=== PATIENT | male | born 1985 | race Caucasian/White ===

== ENCOUNTER 2017-01-23 15:58 | Emergency (ER) | payer BC ==
--- NOTE | ~2017-01-23 | EKG ---
PATIENT: LELO SILVERIO UNIT #: [id number] Ventricular Rate: 100 BPM Atrial Rate: 100 BPM P-R Interval: 140 ms QRS Duration: 98 ms Q-T Interval: 348 ms QTC Calculation(Bezet): 448 ms P [place]: 35 degrees Calculated R [place]: 82 degrees Calculated T [place]: 11 degrees Diagnosis Line: Normal sinus rhythm Diagnosis Line: Normal ECG Diagnosis Line: Diagnosis Line: Confirmed by RIKI VENEGAS MD ([id number]) on 01/24/2017 Diagnosis Line: 5:24:57 PM INTERPRETING MD: RUBI MCCLOUD
--- NOTE | ~2017-01-23 | CR72 ---
[facility], [place]. [facility] A Service of [facility] RADIOLOGY TEXT RESULTS PATIENT: LELO SILVERIO LOCATION: SED : 83 UNIT #: [id number] AGE: [address]: Lamont Stallings MD SEX: M ORDER DR: [id number] [place] [id number] E MR#: [id number] Acc #: [id number] NAME: LELO SILVERIO. : 1985 SEX: M STUDY DATE/TIME: 01/23/2017 16:31 UNIT: SED ROOM: STUDY DESCRIPTION: CR Chest Single View Portable Attending Physician: Lamont Stallings M.D. Ordering Physician: Lamont Stallings M.D. Primary Care Physician: No Primary Care Physician MEDICAL IMAGING REPORT This report is preliminary unless electronic signature is present. EXAM Single view chest INDICATIONS Chest pain for 2 days. Shortness of air. FINDINGS Single portable AP view of the chest compared to 08/22/2009. Heart mediastinal contours within are within normal limits. Lungs are clear. No pleural effusion. IMPRESSION No acute cardiopulmonary findings. Dictated by... Kade Escudero M.D. THIS IS AN ELECTRONICALLY VERIFIED REPORT Kade Escudero M.D. at 01/23/2017 9:45 PM RPC/lacho TD: 01/23/2017 18:03 JOB #: [id number] MEDICAL IMAGING REPORT Page 1 of 1
[2017-01-23 16:39] LABS: BASOPHIL% 0.1 % (0-2.5); DIFF IND NO; EOSINOPHIL# 0.2 X10e3 (0-0.7); EOSINOPHIL% 1.5 % (0.0-7.0); HEMATOCRIT 45.6 % (38.0-50.0); HEMOGLOBIN 15.7 gm/dL (13.0-16.0); LYMPHOCYTE# 3.2 X10e3 (1.0-3.5); LYMPHOCYTE% 22.4 % (17.0-45.0); MEAN CELL VOLUME 92.1 FL (83-96); MEAN CORPUSCULAR HEMOGLOBIN 31.8 PG (28-34); MEAN CORPUSCULAR HGB CONC 34.5 g/dL (30-36); MEAN PLATELET VOLUME 9.2 FL (6.5-11.5); MONOCYTE# 0.9 X10e3 (0-1.0); MONOCYTE% 6.6 % (3.0-12.0); NEUTROPHIL% 69.4 % (40-75); PLATELET COUNT 242 X10e3 (140-420); RED BLOOD COUNT 4.95 X10e (3.90-5.60); RED CELL DISTRIBUTION WIDTH 13.1 % (11.0-15.5); WHITE BLOOD COUNT 14.4 X10e3 (4.0-10.5)
[2017-01-23 16:40] LABS: POC - CKMB <1.0 ng/mL (0.0-7.9)
[2017-01-23 16:41] LABS: POC - TROPONIN <0.05 ng/mL (<=0.05)
[2017-01-23 16:56] LABS: ALBUMIN SERUM 4.5 g/dL (3.5-5.0); BILIRUBIN,TOTAL 0.9 mg/dL (0.2-2.0); BUN/CREATININE RATIO 11.42; CALCIUM SERUM 8.9 mg/dL (8.4-10.2); CREATININE SERUM 0.7 mg/dL (0.6-1.4); GLOM FILT RATE Estimated 124.9 mL/min (>60); POTASSIUM 3.8 mmol/L (3.5-5.1)
[2017-05-22] MEDS ORDERED: NO MEDICATIONS (08:53)
== END 2017-01-23 18:26 | disposition home or self-care (01) ==
LOC: SED 15:58
PROVIDERS: Emergency Medicine
DX: R07.89 Other chest pain (principal); R00.2 Palpitations; F17.210 Nicotine dependence, cigarettes, uncomplicated
CPT/HCPCS: 36415; 71010; 80053; 82553; 84484; 85025; 93005; 96360; 99284

== ENCOUNTER → 2017-05-28 | Day surgery (SDC) | payer BC ==
[~2017-05-28] MED LIST: NO MEDICATIONS
--- NOTE | ~2017-05-28 | OR ---
Unit #: [id number] #: [id number] Patient: LELO SILVERIO [id number] [address] [place], [place] [address] [id number] O MR#: [id number] NAME: LELO SILVERIO ROOM: Date of Procedure: 05/28/2017 Admission Date: 05/28/2017 Surgeon: Graham Bone Jr., M.D. : 1985 Attending Physician: Graham Bone Jr., M.D. Primary Care Physician: Shasha Katz A.P.R.N. 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 He has had a previous excision of the skin and subcutaneous tissue of the axilla, but these were below that area. He is brought in this time for excision of these areas. He understands the procedure including the risk and consents. The small cyst of the scrotum has now completely resolved. PREOPERATIVE DIAGNOSES Cyst of the left pubic area and hidradenitis of the left axilla. POSTOPERATIVE DIAGNOSIS Cyst of the left pubic area and hidradenitis of the left axilla. ANESTHESIA General with LMA. PROCEDURE PERFORMED Excision of skin and subcutaneous tissue of the lateral left axilla with excision of chronic inflamed cyst of the left pubic area. DESCRIPTION OF PROCEDURE The patient was positioned in supine position. After being anesthetized, he was prepped and draped in routine fashion for excision of the 2 areas described above. An elliptical incision was made around the area of hidradenitis of the left axilla inferior to his previous incision and this was carried down through subcutaneous tissue with a #10 blade scalpel down to the deeper subcutaneous tissue. The entire portion of skin and subcutaneous tissue removed was approximately 8 x 15 cm. After this tissue was removed with the Bovie cautery and #10 blade scalpel, hemostasis was achieved with Bovie cautery, specimen sent to pathology, and the deeper tissue approximated with interrupted 3-0 Vicryl sutures. The subcutaneous tissue approximated with interrupted 3-0 Vicryl sutures. Skin edges approximated with stainless-steel skin clips and skin stapling device. An elliptical incision was then made around the area of the inflamed cyst of the left pubic region, actually more in the inguinal region. This was completely excised circumferentially with a #10 blade scalpel down to the deeper subcutaneous tissue. This was also in an elliptical fashion. After it was removed, it was sent to pathology. Hemostasis was achieved with Bovie cautery. The deeper tissue Unit #: [id number] #: [id number] Patient: LELO SILVERIO approximated with interrupted 3-0 Vicryl sutures. Skin edges approximated with stainless-steel skin clips and skin stapling device. Sterile dressings were applied in both wounds. Estimated blood loss for both incisions was less than 50 mL. The patient received less than 1000 mL crystalloid solution during the procedure. Sponges and instrument counts were correct x3. No drains used. No complications. The patient was taken to the recovery room with stable vital signs in satisfactory condition. Dictated by... Graham Bone Jr., M.D. JMB/glendy TD: 05/28/2017 14:03 JOB #: [id number] CC: Guille DavisPCheryl OPERATIVE REPORT Page 1 of 1 X Graham Bone MD X PROCEDURE OPERATIVE NOTE
== END | disposition home or self-care (01) ==
LOC: CSUR 05:31
DX: L73.2 Hidradenitis suppurativa (principal); L72.0 Epidermal cyst; L90.5 Scar conditions and fibrosis of skin; L92.3 Foreign body granuloma of the skin and subcutaneous tissue; L08.9 Local infection of the skin and subcutaneous tissue, unspecified; E66.9 Obesity, unspecified; F17.210 Nicotine dependence, cigarettes, uncomplicated; Z68.34 Body mass index [BMI] 34.0-34.9, adult; Z98.890 Other specified postprocedural states
CPT/HCPCS: 88304; J0131; J1885; J2250; J2405; J3010; J3370